=== PATIENT | male | born 1975 | race Hispanic/Latino ===

== ENCOUNTER 2016-10-05 12:33 | Emergency (ER) | payer BC ==
[2016-10-05] MEDS ORDERED: LIDOCAINE 1% 10 ML VIAL INJ ONE (13:06)
[2016-10-05 13:21] VITALS: BP 160/99; TEMP 99.4; O2SAT 96
[2016-10-05] MEDS ORDERED: NEOMYCIN-BACITRACIN-POLYMYXIN 0.9 GM UD TOP ONE (13:32)
--- NOTE | 2016-10-05 13:43 | ED.PDOC ---
History of Present Illness - General Chief Complaint: Problem Stated Complaint: genital rash Time Seen by Provider: 10/05/16 12:48 Source: patient Exam Limitations: no limitations - History of Present Illness Initial Comments: he patient is a 41-year-old male presenting to the emergency room secondary to paraphimosis. The patient had had an infection at the site over the last few weeks and had been putting ointments in place. He was cleaning the area this morning when he was unable to retract the foreskin back over the glans. It was stuck for approximately 4-6 hours. It is quite painful. I do not see any definite areas of necrosis at this time. Timing/Duration: 4-6 hours Severity: severe Improving Factors: nothing Worsening Factors: nothing Associated Symptoms: denies symptoms Home Medications: Ambulatory Orders Fluconazole [Diflucan Tab] 100 mg PO DAILY #7 tab 10/05/16 Sulfa/Trimeth 800/160 (Ds) Tab [Bactrim DS Tab] 1 ea PO DAILY #5 tab 10/05/16 Review of Systems - Review of Systems Constitutional: States: no symptoms reported EENTM: States: no symptoms reported Respiratory: States: no symptoms reported Cardiology: States: no symptoms reported Gastrointestinal/Abdominal: States: no symptoms reported Genitourinary: States: see HPI Musculoskeletal: States: no symptoms reported Skin: States: see HPI Neurological: States: no symptoms reported All other Systems: No Change from Baseline Past Medical History (General) - Patient Medical History Hx Congestive Heart Failure: No Hx Pacemaker: No Hx Hypertension: Yes Hx Diabetes: Yes Family Medical History - Family History Mother Family History: No Known Physical Exam - Physical Exam General Appearance: Alert, Obvious distress Eye Exam: bilateral normal Ears, Nose, Throat: normal ENT inspection, normal pharynx Neck: full range of motion, supple Respiratory: no respiratory distress, no accessory muscle use Cardiovascular/Chest: normal peripheral pulses, no edema Peripheral Pulses: radial,right: 2+, radial,left: 2+, dorsalis pedis,right: 2+, dorsalis pedis,left: 2+ Gastrointestinal/Abdominal: non tender - morbidly obese, soft Rectal Exam: deferred, other - paraphimosis is present with engorged glans penis Extremity: normal range of motion, non-tender, normal inspection Neurologic: alert, normal mood/affect, oriented x 3 Skin Exam: normal color - see above Comments: Vital Signs - 24 hr 10/05/16 12:55 Temperature 99.4 F Pulse Rate [ 95 H left brachial] Respiratory 20 Rate Blood Pressure 160/99 [left brachial] O2 Sat by Pulse 96 Oximetry Progress - Progress Progress: 10/05/16 13:43 the patient is a 41-year-old male presenting to the emergency room with paraphimosis. We were able to reduce the paraphimosis. In the process of doing so he sustained a small abrasion to the dorsal foreskin. Antibiotic ointment was applied. Pain was reduced significantly. The patient be placed on Bactrim once daily for the next 5 days and Diflucan once daily for the next 7 days. ER warnings were given for any worsening. He needs to see his primary care doctor to get set up with urology for a circumcision. He needs to return to the emergency room for any recurrence of this problem. He does understand the time sensitive nature of this problem. Neurology Teacher was used. he does need to continue to use Neosporin ointment to coat the glans of the penis as well as the dorsal abrasion. Procedure: Risks benefits explained and patient agrees to proceed. pressure was applied on the glans of the penis externally along with a cool compress for approximately 20 minutes. We were unable to reduce the paraphimosis. Area is cleaned with alcohol swabs. 2 cc of Xylocaine without epinephrine were injected posterior to the phimotic foreskin. an Allis clamp was placed at 12: 00 immediately posterior to the phimotic ring for traction. The clamp did slip off and the patient sustained a 1 cm superficial abrasion at the site. Traction was reapplied through a 4 x 4 gauze with the Allis clamp. External pressure was applied to the glans of the penis and this time we were able to reduce the paraphimosis. Antibiotic ointment was applied around the glans of the penis and over the abrasion which can be seen dorsally. Good hemostasis is obtained. Estimated blood loss 0.5cc. again, no obvious evidence of tissue necrosis at this time.. Departure - Departure Clinical Impression: Paraphimosis ICD-10 Supporting Text: initial evaluation. Requiring proceduralreduction. Disposition: Discharge to Home or Self Care Condition: Fair Departure Forms: ED Discharge - Pt. Copy, Patient Portal Self Enrollment Instructions: DI for Paraphimosis Diet: diabetic diet Activity: increase activity as tolerated Referrals: Gloria Centeno NP [Primary Care Provider] - 1-2 Days Prescriptions: Fluconazole [Diflucan Tab] 100 mg PO DAILY #7 tab Sulfa/Trimeth 800/160 (Ds) Tab [Bactrim DS Tab] 1 ea PO DAILY #5 tab Home Medications: Ambulatory Orders Fluconazole [Diflucan Tab] 100 mg PO DAILY #7 tab 10/05/16 Sulfa/Trimeth 800/160 (Ds) Tab [Bactrim DS Tab] 1 ea PO DAILY #5 tab 10/05/16 Additional Instructions: the patient is a 41-year-old male presenting to the emergency room with paraphimosis. We were able to reduce the paraphimosis. In the process of doing so he sustained a small abrasion to the dorsal foreskin. Antibiotic ointment was applied. Pain was reduced significantly. The patient be placed on Bactrim once daily for the next 5 days and Diflucan once daily for the next 7 days. ER warnings were given for any worsening. He needs to see his primary care doctor to get set up with urology for a circumcision. He needs to return to the emergency room for any recurrence of this problem. He does understand the time sensitive nature of this problem. Neurology Teacher was used. he does need to continue to use Neosporin ointment to coat the glans of the penis as well as the dorsal abrasion.
== END 2016-10-05 14:02 | disposition home or self-care (01) ==
LOC: ER 12:33
DX: N47.2 Paraphimosis (principal)

== ENCOUNTER → 2016-11-03 | Outpatient (CLI) | payer BC | END | disposition home or self-care (01) | LOC: YCFC.O 07:10 | PROVIDERS: ATTEND Nurse Practitioner Family | DX: E78.2 Mixed hyperlipidemia (principal); E11.65 Type 2 diabetes mellitus with hyperglycemia; I10 Essential (primary) hypertension ==

== ENCOUNTER → 2018-03-16 | Outpatient (CLI) | payer BC | LOC: LAB.O 07:36 | PROVIDERS: ATTEND Nurse Practitioner Family | DX: E11.65 Type 2 diabetes mellitus with hyperglycemia (principal); I10 Essential (primary) hypertension; E78.2 Mixed hyperlipidemia ==

== ENCOUNTER → 2018-06-03 | Outpatient (CLI) | payer BC | LOC: YCFC.O 08:13 | PROVIDERS: ATTEND Nurse Practitioner Family | DX: E11.65 Type 2 diabetes mellitus with hyperglycemia (principal) ==

== ENCOUNTER → 2020-01-12 | Outpatient (CLI) | payer OTHER | LOC: GMA CAST 13:54 | PROVIDERS: ATTEND Family Medicine Sports Medicine | DX: R03.0 Elevated blood-pressure reading, without diagnosis of hypertension (principal) ==